=== PATIENT | female | born 1995 | race Caucasian/White ===

== ENCOUNTER 2017-05-06 20:05 | Emergency (ER) | payer OTHER ==
--- NOTE | 2017-05-06 20:09 | PDOC ---
History of Present Illness - General History Source: Patient Exam Limitations: No Limitations - History of Present Illness Initial Comments: 05/06/17 20:21 The patient is a 21 year old female, with a significant past medical history of Asthma (albuterol inhaler), who presents to the emergency department with 6 days of productive cough and fever 2 days ago. The patient reports her cough is productive of yellowish green sputum and exacerbated at night. She states she coughs so hard she vomits. The patient states she has been using her albuterol inhaler without relief of her symptoms. She states she has been taking Theraflu for about 2 days. She states she feels sweaty now. She denies chest pain, shortness of breath, headache and dizziness. She denies chills, nausea, diarrhea and constipation. She denies dysuria, frequency, urgency and hematuria. PAST MEDICAL HISTORY: Asthma PAST SURGICAL HISTORY: no significant history FAMILY HISTORY: no pertinent history SOCIAL HISTORY: Pt lives with family and is a student MEDICATIONS: reviewed ALLERGIES: As per nursing notes Adult ROS General:(+) fever. No chills, no weakness, no weight loss HEENT: No change in vision. No sore throat,. No ear pain CardioVascular: No chest pain or shortness of breath Respiratory:(+) cough with post-tussis emesis, No wheezing. Gastrointestinal: no nausea, diarrhea or constipation, No rectal bleeding Genitourinary: No dysuria, hematuria, or frequency Musculoskeletal: No joint or muscle pain or swelling Neurologic: No headache, vertigo, dizziness or loss of consciousness Psychiatric: nor depression Skin: No rashes or easy bruising Endocrine: no increased thirst or abnormal weight change Allergic: no skin or latex allergy All other systems reviewed and normal Adult Exam: General: Well-nourished well-developed individual, no acute distress HEENT: Throat: Normal, tonsils normal, no erythema or exudate Neck: Supple, no meningeal signs, no lymphadenopathy Eyes::Pupils equal reactive and round, extraocular motion intact Chest: Nontender to palpation Cardiac: S1-S2 normal, regular rate and rhythm, no murmurs rubs or gallops Respiratory: (+) decreased breath sounds bilaterally with expiratory wheezing in all lung bosch. Abdomen: Soft, nondistended, normal bowel sounds, nontender to palpation diffusely Extremities: Warm, dry, no cyanosis, clubbing, or edema Skin: No rashes Neuro: Alert and oriented x3, nonfocal exam, grossly intact, normal gait Psych: Normal mood and affect <Graciela Cabrera - Last Filed: 05/06/17 20:21> - General History Source: Patient Exam Limitations: No Limitations - History of Present Illness Initial Comments: Chest x-ray no acute pathology 05/06/17 22:52 Reevaluation: Patient's peak expiratory flow is 350 which is approximately 85 % of the predicted. Patient does still have some expiratory wheezes but feels better Assessment and plan: This is a 21-year-old female with fever chills cough congestion and wheezing. Patient does have a history of asthma and was given dual nebs as well as prednisone here in the emergency room. Her peak expiratory flow was 350. Given the fact the patient is also coughing up greenish yellow phlegm even though her chest x-ray doesn't show any acute infiltrate I am going to start her on azithromycin for presumptive asthmatic bronchitis. Patient discharged home with prescription for azithromycin and prednisone. <Zoltan Valle I - Last Filed: 05/06/17 22:57> - General Chief Complaint: Respiratory Stated Complaint: COUGH Time Seen by Provider: 05/06/17 20:09 Past History <Graciela Cabrera - Last Filed: 05/06/17 20:21> <Zoltan Valle I - Last Filed: 05/06/17 22:57> - Past Medical History Allergies/Adverse Reactions: Allergies Allergy/AdvReac Type Severity Reaction Status Date / Time codeine Allergy Hives Verified 05/06/17 20:11 Home Medications: Ambulatory Orders Albuterol Sulfate Inhaler - [Ventolin Hfa Inhaler -] 1 - 2 inh PO QID PRN Azithromycin 250 mg PO DAILY #4 tablet 05/06/17 Etonogestrel [Nexplanon] 68 mg SQ ASDIR 05/06/17 Prednisone [Deltasone -] 40 mg PO DAILY #8 tablet 05/06/17 *Physical Exam - Vital Signs Last Vital Signs Temp Pulse Resp BP Pulse Ox 98.1 F 98 H 22 151/80 98 05/06/17 20:05 05/06/17 20:05 05/06/17 20:05 05/06/17 20:05 05/06/17 20:05 <Graciela Cabrera - Last Filed: 05/06/17 20:21> *DC/Admit/Observation/Transfer - Attestations Scribe Attestion: 05/06/17 20:22 Documentation prepared by Graciela Cabrera, acting as medical practice administrator for Zoltan Valle MD <Graciela Cabrera - Last Filed: 05/06/17 20:21> <Zoltan Valle I - Last Filed: 05/06/17 22:57> Diagnosis at time of Disposition: Asthmatic bronchitis Qualifiers: Asthma severity: moderate Asthma complication type: uncomplicated - Discharge Dispostion Disposition: HOME Condition at time of disposition: Stable - Prescriptions Prescriptions: Azithromycin 250 mg PO DAILY #4 tablet Prednisone [Deltasone -] 40 mg PO DAILY #8 tablet - Patient Instructions Additional Instructions: Continue to use your inhaler 2 puffs as often as every 4-6 hours if needed. Tylenol or Motrin as needed for fevers. Take azithromycin 1 tablet a day for the next 4 days. Take prednisone 40 mg a day for the next 4 days. Call your doctor on Monday and follow-up with your doctor for reevaluation. Return to the emergency department immediately with ANY new, persistent or worsening symptoms. Continue any medications as previously prescribed by your physician. . Please make sure your doctor reviews the results of your emergency evaluation. Thank you for coming to the Emergency Department today for your care. It was a pleasure to see you today. Please note that your evaluation is INCOMPLETE until you follow-up with your doctor.
[2017-05-06 20:15] VITALS: BP 151/80; PULSE 98; TEMP 98.1; BMI 33.2
[2017-05-06] MEDS ORDERED: AZITHROMYCIN 250 MG TABLET PO ONE (20:16)
[2017-05-06] MEDS ORDERED: ALBUTEROL SO4 2.5/IPRATROPIUM 0.5 INH SOL 3 ML VIAL.NEB. NEB ONE ×2 (20:17→21:56)
[2017-05-06] MEDS ORDERED: predniSONE 20 MG TABLET (UD) PO ONE (20:17)
[2017-05-06] MEDS: ALBUTEROL SO4 2.5/IPRATROPIUM 0.5 INH SOL 3 ML VIAL.NEB. NEB SCH ×3 (20:20→21:58)
[2017-05-06] MEDS ORDERED: AZITHROMYCIN 250 MG TABLET ONE (20:31)
[2017-05-06] MEDS ORDERED: predniSONE 20 MG TABLET (UD) ONE (20:31)
[2017-05-06] MEDS ORDERED: ALBUTEROL SO4 2.5/IPRATROPIUM 0.5 INH SOL 3 ML VIAL.NEB. NEB SCH (22:00)
== END 2017-05-06 22:55 | disposition home or self-care (01) ==
LOC: FER 20:05
PROC: 3E0F7GC Introduction of Other Therapeutic Substance into Respiratory Tract, Via Natural or Artificial Opening (ICD-10-PCS; principal; 2017-05-06)
DX: J45.909 Unspecified asthma, uncomplicated (principal)
CPT/HCPCS: 71046-TC; 84703; 99281-25